=== PATIENT | male | born 1940 | race Caucasian/White ===

== ENCOUNTER 2021-07-31 11:34 | Emergency (ER) | payer OTHER ==
[~2021-07-31] VITALS: Ht 188 cm; Wt 104.3 kg
[~2021-07-31 11:34] MED LIST: LOTREL 10/20 MG1 CAP; PLAVIX75 MG; ZOCOR20 MG
[2021-07-31] MEDS ORDERED: ATORVASTATIN CA20 MG PO (11:56)
[2021-07-31] MEDS ORDERED: SYNTHROID112 MCG PO (11:57)
[2021-07-31] MEDS ORDERED: GLUMETZA1000 MG (11:57)
== END 2021-07-31 12:43 | disposition home or self-care (01) ==
LOC: ER 11:34
DX: N39.0 Urinary tract infection, site not specified (principal); Z88.6 Allergy status to analgesic agent

== ENCOUNTER 2023-01-22 10:46 | Emergency (ER) | payer OTHER ==
[~2023-01-22] VITALS: Ht 188 cm; Wt 108.9 kg
[~2023-01-22 10:46] MED LIST changes: +ATORVASTATIN CA20 MG PO; +GLUMETZA1000 MG; +SYNTHROID112 MCG PO
== END 2023-01-22 15:43 | disposition home or self-care (01) ==
LOC: ER
DX: M54.50 Low back pain, unspecified (principal); E11.9 Type 2 diabetes mellitus without complications; Z79.84 Long term (current) use of oral hypoglycemic drugs; I10 Essential (primary) hypertension; E03.9 Hypothyroidism, unspecified; Z88.6 Allergy status to analgesic agent

== ENCOUNTER 2023-12-05 16:34 | Emergency (ER) | payer OTHER ==
[~2023-12-05] VITALS: Ht 188 cm; Wt 104.3 kg
[~2023-12-05 16:34] MED LIST changes: +CEPHALEXIN500 M1 PO
== END 2023-12-05 17:50 | disposition home or self-care (01) ==
LOC: ER 16:34
DX: H11.30 Conjunctival hemorrhage, unspecified eye (principal); Z88.6 Allergy status to analgesic agent

== ENCOUNTER 2024-08-01 07:26 | Outpatient (CLI) | payer OTHER | END 2024-08-01 07:30 | disposition home or self-care (01) | LOC: SONOGRAMA 07:26 | PROVIDERS: ATTEND Internal Medicine Gastroenterology | DX: R19.4 Change in bowel habit (principal); E11.9 Type 2 diabetes mellitus without complications; R19.7 Diarrhea, unspecified; D68.8 Other specified coagulation defects; K74.00 Hepatic fibrosis, unspecified; K76.0 Fatty (change of) liver, not elsewhere classified; R19.5 Other fecal abnormalities ==

== ENCOUNTER 2024-08-22 07:03 | Outpatient (CLI) | payer OTHER | END 2024-08-22 07:06 | disposition home or self-care (01) | LOC: TOM 07:03 | PROVIDERS: ATTEND Internal Medicine Gastroenterology | DX: R19.4 Change in bowel habit (principal); E11.9 Type 2 diabetes mellitus without complications; R19.7 Diarrhea, unspecified; D68.8 Other specified coagulation defects; K74.00 Hepatic fibrosis, unspecified; R19.5 Other fecal abnormalities ==